=== PATIENT | female | born 1935 | race Caucasian/White ===

== ENCOUNTER 2025-04-07 05:43 | Inpatient (IN) | payer MEDICARE, SELFPAY ==
[2025-04-07] VITALS (13 sets, daily range): BP systolic 128–193; BP diastolic 58–106
[2025-04-07 03:55] LABS: Hematocrit 38.5 % (37.0-47.0); Hemoglobin 13.1 g/dL (12.0-16.0); Mean Corp Hgb Conc. 34.0 g/dL (33.0-37.0); Mean Corpuscular Volume 93.9 fL (81.0-99.0); Nucleated Red Blood Cells % 0 %; Platelet Count 199 10^3/uL (130-400); Red Cell Dist. Width 12.1 % (11.5-14.5)
[2025-04-07 04:19] LABS: ALT (SGPT) 17 U/L (0-35); AST (SGOT) 27 U/L (14-36); Albumin 4.0 g/dl (3.5-5.0); Alkaline Phosphatase 116 U/L (38-126); Blood Urea Nitrogen 27 mg/dl (7-17); Calcium 9.5 mg/dl (8.4-10.2); Carbon Dioxide 28 mmol/L (22-30); Chloride 105 mmol/L (98-107); Glucose 137 mg/dl (70-99); Potassium 3.9 mmol/L (3.5-5.1); Sodium 138 mmol/L (135-145); Total Protein 6.9 g/dl (6.3-8.2); eGFR > 60.00
--- NOTE | 2025-04-07 04:33 | ED.GENMED ---
History of Present Illness
<Miah García MD, Resident - Last Filed: 04/07/25 06:50>
General
Chief Complaint: Fall
Source: patient
Time Seen by Provider: 04/07/25 04:22
History of Present Illness
History of Present Illness:
Patient is an 89-year-old female who presents to the emergency department with an unwitnessed fall, left hip pain, and the inability to stand. She is a long-term resident of [facility] with a past medical history of Alzheimer's dementia,
hyperlipidemia, nephrolithiasis, hypertension, diverticulitis, and history of falls. She takes furosemide, losartan, metoprolol, and sertraline. Patient was in her normal state of health earlier in the day when she experienced an unwitnessed fall
approximately 5 hours prior to her presentation. She was found on the floor and when staff tried to help lift her to her feet she was unable to stand. This prompted staff to call EMS for her to be brought to the emergency department for further
evaluation. Patient is a poor historian and her history has been taken from EMS. patient is resting comfortably in bed but unable to stand. Patient is only oriented to self not place or time.
Review of Systems
<Miah García MD, Resident - Last Filed: 04/07/25 06:50>
Review of Systems
Unable to obtain full review of systems at this time due to: dementia
Phy Exam
<Miah García MD, Resident - Last Filed: 04/07/25 06:50>
Physical Exam
Physical Exam:
Limited physical exam due to patient dementia and acuity
Musculoskeletal Exam
Musculoskeletal Exam: other ( unable to move left lower limb at the hip)
Course
<Miah García MD, Resident - Last Filed: 04/07/25 06:50>
Orders/Labs/Results
Orders:
Orders
04/07/25 03:42
Hip, Left 2-3 Views [CR Hip - LT w/wo Pel 2-3 Vw*] Urgent
Comment:
Reason For Exam: S/P pain
Include a pelvis x-ray?: Yes
04/07/25 03:43
CMP [Comprehensive Metabolic Panel] Urgent
Complete Blood Count/With Diff Urgent
04/07/25 04:48
CT Head W/o Iv Contrast Urgent
Comment:
Reason For Exam: Unwitnessed fall. Poor historian. Dementia.
04/07/25 04:53
Morphine Sulfate 2 mg IV NOW ONE
04/07/25 05:09
Morphine Sulfate 2 mg .ROUTE .STK-MED ONE
04/07/25 05:10
Morphine Sulfate 2 mg IV NOW STA
04/07/25 05:16
Admit/Transfer Patient As Directed
Co-Sign Provider:
Level of Care: Inpatient admission
Assign to:: Medical/Surgical
Physician / Group: Mattie
Diagnosis: Left hip fracture
Reason for Hospitalization: Hip fracture
Expected length of stay greater than two midnights?: Yes
ELOS- Estimated Length of Stay in days: 2
I certify the patient meets the requirements for IP care: Yes
04/07/25 05:17
PRN Pain Medication Management As Directed
May give lesser potent ordered pain med per pt: Yes
preference::
Protocol:: Medication orders for pain may be administered in a
manner that supports deferring to patient preference
when the pt is:
- Requesting an ordered lesser potent pain medication.
Least to most potent pain medications are defined
as: acetaminophen < NSAID < tramadol < opioids
(morphine, oxycodone, hydromorphone).
- Requesting a lesser dose of the same medication IF
ORDERED.
- Requesting a less intrusive route of administration
if both routes are prescribed by the provider (PO <
IV).
04/07/25 05:19
Code Status As Directed
Resuscitation Status: Do not resuscitate
Reached after discussion with pt or family/Healthcare POA: Yes
DNR Bracelet Application ONCE
04/07/25 Breakfast
NPO
Allow oral meds: Yes
Allow clear liquids: Sips of Clears
04/07/25 07:06
Dextrose 5%/Lactringers 500 ml [D5lr] 500 ml IV 60 mls/hr
Magnesium Hydroxide [Milk of Magnesia] 30 ml PO DAILYPRN PRN
Morphine Sulfate 2 mg IV Q4HPRN PRN
Oxycodone [Roxicodone] 5 mg PO Q4HPRN PRN
Tamsulosin [Flomax] 0.4 mg PO DAILYPRN PRN
04/07/25 07:06
ORTHOPEDIC CONSULT Routine
Consulting Provider: Collin Lopez
Was physician already notified: Yes
Activity As Directed
Activity Level: With Assistance
Bladder Scan As Directed
Follow Bladder Retention/Intermittent Cath Algorithm?: Yes
PRN if no void in __ hours: 6
Comment: if not voiding 6 hrs upon arrival to floor, bladder scan & follow algorithm
Intake/ Output As Directed
Frequency: Per unit guidelines
Straight Cath As Directed
Frequency: Per Retention Algorithm
Additional Instructions: straight cath as needed per acute urinary retention algorithm for 24 hrs
Additional Instructions: for bladder scan greater than 400 mL
Vital Signs As Directed
Frequency: Per unit guidelines
Pt Eval And Treat Routine
Activity Level: With Assistance
DX Deep Vein Thrombosis Video Routine
04/07/25 08:00
Acetaminophen [Tylenol] 650 mg PO Q4HWA
Metoprolol Xl [Toprol Xl] 50 mg PO Q12
04/07/25 20:00
Docusate Sodium [Colace] 100 mg PO BID
Sennosides [Senokot] 17.2 mg PO BID
04/07/25 22:00
Alprazolam [Xanax] 0.25 mg PO HS
Atorvastatin [Lipitor] 20 mg PO HS
Donepezil HCl [Aricept] 10 mg PO HS
Melatonin 3 mg PO HS
NIFEdipine EXTENDED RELEASE [Procardia Xl (Extended Release)] 30 mg PO HS
04/08/25 08:00
FOLic ACID [Folvite] 1 mg PO DAILY
Furosemide [Lasix] 40 mg PO DAILY
Losartan [Cozaar] 100 mg PO DAILY
Sertraline HCl [Zoloft] 100 mg PO DAILY
04/08/25 18:00
Enoxaparin Sodium [Lovenox] 40 mg SC QPM
Abnormal Lab Results
04/07/25
03:43
WBC 11.7 H 10^3/uL
(4.8-10.8)
RBC 4.10 L 10^6/uL
(4.20-5.40)
MCH 32.0 H pg
(27.0-31.0)
Abs Immat Gran (auto) 0.1 H 10^3/uL
(0-0.05)
Absolute Neuts (auto) 9.9 H 10^3/uL
(1.4-6.5)
Neutrophils % 84.1 H %
(42.2-75.2)
Lymphocytes % 10.9 L %
(20.5-51.1)
BUN 27 H mg/dl
(7-17)
Glucose 137 H mg/dl
(70-99)
04/07/25 03:43
04/07/25 03:43
Vital Signs
Initial and Last Documented VS:
Initial Vital Signs
Temp
98.2 F
04/07/25 03:33
Last Documented Vital Signs
Temp Pulse Resp BP Pulse Ox
97.5 F 81 20 193/106 97
04/07/25 07:00 04/07/25 07:00 04/07/25 07:00 04/07/25 07:00 04/07/25 07:00
<Carly Ventura, DO - Last Filed: 04/07/25 07:39>
Orders/Labs/Results
Orders:
Orders
04/07/25 03:42
Hip, Left 2-3 Views [CR Hip - LT w/wo Pel 2-3 Vw*] Urgent
Comment:
Reason For Exam: S/P pain
Include a pelvis x-ray?: Yes
04/07/25 03:43
CMP [Comprehensive Metabolic Panel] Urgent
Complete Blood Count/With Diff Urgent
04/07/25 04:48
CT Head W/o Iv Contrast Urgent
Comment:
Reason For Exam: Unwitnessed fall. Poor historian. Dementia.
04/07/25 04:53
Morphine Sulfate 2 mg IV NOW ONE
04/07/25 05:09
Morphine Sulfate 2 mg .ROUTE .STK-MED ONE
04/07/25 05:10
Morphine Sulfate 2 mg IV NOW STA
04/07/25 05:16
Admit/Transfer Patient As Directed
Co-Sign Provider:
Level of Care: Inpatient admission
Assign to:: Medical/Surgical
Physician / Group: Mattie
Diagnosis: Left hip fracture
Reason for Hospitalization: Hip fracture
Expected length of stay greater than two midnights?: Yes
ELOS- Estimated Length of Stay in days: 2
I certify the patient meets the requirements for IP care: Yes
04/07/25 05:17
PRN Pain Medication Management As Directed
May give lesser potent ordered pain med per pt: Yes
preference::
Protocol:: Medication orders for pain may be administered in a
manner that supports deferring to patient preference
when the pt is:
- Requesting an ordered lesser potent pain medication.
Least to most potent pain medications are defined
as: acetaminophen < NSAID < tramadol < opioids
(morphine, oxycodone, hydromorphone).
- Requesting a lesser dose of the same medication IF
ORDERED.
- Requesting a less intrusive route of administration
if both routes are prescribed by the provider (PO <
IV).
04/07/25 05:19
Code Status As Directed
Resuscitation Status: Do not resuscitate
Reached after discussion with pt or family/Healthcare POA: Yes
DNR Bracelet Application ONCE
04/07/25 Breakfast
NPO
Allow oral meds: Yes
Allow clear liquids: Sips of Clears
04/07/25 07:06
Dextrose 5%/Lactringers 500 ml [D5lr] 500 ml IV 60 mls/hr
Magnesium Hydroxide [Milk of Magnesia] 30 ml PO DAILYPRN PRN
Morphine Sulfate 2 mg IV Q4HPRN PRN
Oxycodone [Roxicodone] 5 mg PO Q4HPRN PRN
Tamsulosin [Flomax] 0.4 mg PO DAILYPRN PRN
04/07/25 07:06
ORTHOPEDIC CONSULT Routine
Consulting Provider: Collin Lopez
Was physician already notified: Yes
Activity As Directed
Activity Level: With Assistance
Bladder Scan As Directed
Follow Bladder Retention/Intermittent Cath Algorithm?: Yes
PRN if no void in __ hours: 6
Comment: if not voiding 6 hrs upon arrival to floor, bladder scan & follow algorithm
Intake/ Output As Directed
Frequency: Per unit guidelines
Straight Cath As Directed
Frequency: Per Retention Algorithm
Additional Instructions: straight cath as needed per acute urinary retention algorithm for 24 hrs
Additional Instructions: for bladder scan greater than 400 mL
Vital Signs As Directed
Frequency: Per unit guidelines
Pt Eval And Treat Routine
Activity Level: With Assistance
DX Deep Vein Thrombosis Video Routine
04/07/25 08:00
Acetaminophen [Tylenol] 650 mg PO Q4HWA
Metoprolol Xl [Toprol Xl] 50 mg PO Q12
04/07/25 20:00
Docusate Sodium [Colace] 100 mg PO BID
Sennosides [Senokot] 17.2 mg PO BID
04/07/25 22:00
Alprazolam [Xanax] 0.25 mg PO HS
Atorvastatin [Lipitor] 20 mg PO HS
Donepezil HCl [Aricept] 10 mg PO HS
Melatonin 3 mg PO HS
NIFEdipine EXTENDED RELEASE [Procardia Xl (Extended Release)] 30 mg PO HS
04/08/25 08:00
FOLic ACID [Folvite] 1 mg PO DAILY
Furosemide [Lasix] 40 mg PO DAILY
Losartan [Cozaar] 100 mg PO DAILY
Sertraline HCl [Zoloft] 100 mg PO DAILY
04/08/25 18:00
Enoxaparin Sodium [Lovenox] 40 mg SC QPM
Abnormal Lab Results
04/07/25
03:43
WBC 11.7 H 10^3/uL
(4.8-10.8)
RBC 4.10 L 10^6/uL
(4.20-5.40)
MCH 32.0 H pg
(27.0-31.0)
Abs Immat Gran (auto) 0.1 H 10^3/uL
(0-0.05)
Absolute Neuts (auto) 9.9 H 10^3/uL
(1.4-6.5)
Neutrophils % 84.1 H %
(42.2-75.2)
Lymphocytes % 10.9 L %
(20.5-51.1)
BUN 27 H mg/dl
(7-17)
Glucose 137 H mg/dl
(70-99)
04/07/25 03:43
04/07/25 03:43
Vital Signs
Initial and Last Documented VS:
Initial Vital Signs
Temp
98.2 F
04/07/25 03:33
Last Documented Vital Signs
Temp Pulse Resp BP Pulse Ox
97.5 F 81 20 193/106 97
04/07/25 07:00 04/07/25 07:00 04/07/25 07:00 04/07/25 07:00 04/07/25 07:00
<Miah García MD, Resident - Last Filed: 04/07/25 06:50>
*Pulse Oximetry
SaO2: 92
Patient hypoxic: no
*Critical Care Note
Total Time (30-74mins, 75-104mins- exclusive of procedures): 60
<Carly Ventura DO - Last Filed: 04/07/25 07:39>
*Critical Care Note
Total Time (30-74mins, 75-104mins- exclusive of procedures): Not Applicable
<Miah García MD, Resident - Last Filed: 04/07/25 06:50>
Update Note
Update Note:
Problem List:
Left hip pain
inability to stand
Plan:
left hip x-ray ordered
pain management
CBC and CMP ordered
Differential Diagnoses:
left hip fracture
metabolic encephalopathy
physical deconditioning
Radiology:
preliminary read of left hip x-ray shows fracture of the femoral neck
EKG:
not applicable
Labs:
CBC with leukocytosis with white blood cell value of 11.7, neutrophil predominance 84.1%
CMP unremarkable
Updates:
preliminary read of left hip x-ray shows fracture of the femoral neck. patient unable to stand or ambulate.
will consult orthopedics. Will reach out to hospitalist service for admit.
ED Attending Note
<Miah García MD, Resident - Last Filed: 04/07/25 06:50>
-
Portions of this chart may have been created with voice recognition software.� Occasional wrong word or��sound alike� substitutions may have occurred due to the inherent limitations of voice recognition software.
<Carly Ventura DO - Last Filed: 04/07/25 07:39>
ED Attending Note
Patient seen and examined by attending physician: Yes
I performed a history and physical exam of patient and discussed management with resident, I reviewed resident's note and agree with documented findings and plan of care.: Yes
ED Attending Note:
This is an 89-year-old woman with history of Alzheimer's dementia, remote history of breast cancer. Resides in a local intermediate. Suffered an unwitnessed fall and presents via EMS with complaints of left hip pain. correction staff report
patient unable to stand due to left hip pain.
She takes no anticoagulants.
89-year-old woman appears her stated age, awake and alert, confused.
HEENT: The head is normocephalic, atraumatic.
Neck is supple, nontender. Full cervical range of motion without difficulty nor pain.
Heart is regular rate and rhythm.
Lungs are clear to auscultation.
Abdomen is soft without appreciable tenderness.
Extremities: Left lower extremity is mildly externally rotated and shortened. Mild pain about the left hip with palpation. Moderate left hip pain with attempted range of motion. Peripheral pulses are full and equal.
Significant concern for left hip fracture thus x-ray performed which shows transcervical left hip fracture.
Patient does have a history of dementia however suffered an unwitnessed fall just must consider occult head injury, will check CT of the head.
Will admit to hospital service and consult orthopedics regarding left hip fracture.
Calls have been placed to both son and daughter, no return call as yet.
According to intermediate records, patient is DNR status.
Discharge Plan
Departure
Patient Disposition: Admit
Date of Disposition: 04/07/25
Time of Disposition: 05:08
Admit to: Med/Surg
Admit to doctor: Mattie
Presentation/result/management discussed w/ accepting MD/DO: Hospitalist
Condition: Fair
Discharge Problem:
Acute left hip fracture, Fall at intermediate, Alzheimer's dementia
Interventions
Interventions:
*Risk Screen - Suicide Last Done: 04/07/25 04:00
*General Assessment Last Done: 04/07/25 05:23
*Neglect/Abuse Screening Last Done: 04/07/25 04:00
*Nursing Disposition Last Done: 04/07/25 06:53
ED-Musculoskeletal Assessment Last Done: 04/07/25 03:45
ED- Neurological Assessment Last Done: 04/07/25 04:00
Discharge Date and Time
Discharge Date/Time: 04/07/25 06:53
[2025-04-07] MEDS: MORPHINE SULFATE 2 MG IV ×3 (04:56→07:52)
--- NOTE | 2025-04-07 04:57 | HPS.HSE ---
Family Physician
-
Family Physician: Nico Sanchez
Chief Complaint
-
Unwitnessed fall
History of Present Illness
This is a 89-year-old female with past medical history significant for hypertension, hyperlipidemia, dementia who presents to the emergency department following an unwitnessed fall from a long-term care facility.
Patient with fairly advanced dementia and unable to provide much history. She could not recall the circumstances of her fall. It does not appear that she had a loss of consciousness and she had no external trauma in her head limbs or thorax. She
stated that she ambulates with walker at baseline. She eats independently.
In the emergency department she was afebrile, blood pressure was elevated at 180/99 with a pulse rate of 80. She was satting 90% on room air. CBC was unremarkable with a white count of 11.7 hemoglobin of 13.1 and a plate count of 199.
Electrolytes BUN and creatinine were in the normal range.
Hip x-ray revealed a left-sided femoral neck comminuted fracture fracture
Medical History
Past Medical History
Past Medical History: Reports Cancer (History of breast cancer status posttreatment), Dementia, HTN, Hypercholesterolemia and Other (Nephrolithiasis)
Past Surgical History: Reports Other
Social History
Tobacco: Non-smoker
Alcohol: None
Drug: None
Family History
Family History: Not pertinent
Allergies / Home Medications
Allergies reflects when Allergies were last updated in [facility].
Home Medications with original date entered in [facility]
Allergy/Medication List:
Allergies
Allergy/AdvReac Type Severity Reaction Status Date / Time
amlodipine Allergy Unknown Verified 04/07/25 04:29
codeine Allergy Unknown Verified 04/07/25 04:28
Home Medications
alprazolam 0.25 mg tablet 0.25 mg PO HS anxiety 04/07/25
atorvastatin 20 mg tablet 20 mg PO HS 04/07/25
donepezil 10 mg tablet 10 mg PO HS 04/07/25
folic acid 1 mg tablet 1 mg PO DAILY 04/07/25
furosemide 40 mg tablet 40 mg PO DAILY 04/07/25
losartan 100 mg tablet 100 mg PO DAILY 04/07/25
melatonin 3 mg capsule 3 mg PO HS sleep 04/07/25
metoprolol succinate 50 mg tablet,extended release 24 hr 50 mg PO Q12H 04/07/25
nifedipine 30 mg tablet,extended release 30 mg PO HS 04/07/25
sertraline 100 mg tablet 100 mg PO DAILY 04/07/25
Review of Systems
-
Unable to obtain full review of systems at this time due to: Dementia
Physical Exam
Vital Signs
Vital Signs
Temp BP Pulse Ox
98.2 F 183/99 92
04/07/25 03:33 04/07/25 03:35 04/07/25 04:38
Physical Exam
General: Well Developed, Well Nourished and No Apparent Distress
HEENT: NormoCephalic, Moist mucous membranes and Atraumatic
Respiratory: Clear
Cardiac: S1/S2 and Regular Rhythm; No Murmur or Rub
GI: Soft, Non Tender, Non Distended and Normal Bowel Sounds; No Organomegaly
Rectal: Deferred by Provider
Genito-urinary: Deferred by me
Musculoskeletal: No Clubbing, No Cyanosis, Edema, Left Lower Extremity (1+), Edema, Right Lower Extremity (1+) and Other (Intact pulses bilateral)
Skin: No Rash
Neuro: Alert, Oriented (Oriented to person only) and Nonfocal/grossly intact
Hematologic/Lymphatic: No Lymphadenopathy
Psych: Calm
Laboratory Results
-
04/07/25 03:43
04/07/25 03:43
Laboratory Results
Total Bilirubin 1.3 mg/dl (0.2-1.3) 04/07/25 03:43
AST 27 U/L (14-36) 04/07/25 03:43
ALT 17 U/L (0-35) 04/07/25 03:43
Alkaline Phosphatase 116 U/L (38-126) 04/07/25 03:43
Data Reviewed
-
Diagnostic Radiology: Image Personally Visualized and interpreted
Lab Data: Labs Reviewed by me
Old Records: Reviewed
Impression/Plan
-
IMPRESSION:
89-year-old from chronic care facility who had an unwitnessed fall and suffered a left-sided comminuted femoral neck fracture. Last meal was dinnertime yesterday. She is not on any thinners or antiplatelet agents. Hypertension but otherwise no
known cardiac disease.
PLAN:
Hip fracture
- Admit to MedSurg
- head CT to rule out intracranial process but no obvious head trauma or change in MS
- N.p.o. for now
- Maintenance fluids
- Continue metoprolol this evening, and nifedipine and losartan with hold parameters starting postop #1
- continue lasix pod #1
- fracture order set with pain control, antiemetics and urinary retention protocol
- dvt ppx with scds pending surgery
- ortho consulted and aware
- PT consult
Left message for POA son Quinn Reina.
Code Status -DNR
--- NOTE | 2025-04-07 07:15 | CON.ORTHO ---
Consultation
-
Date/Time Consultation Requested: 04/07/2025 @ Unknown Time
Date/Time Consultation Performed: 04/07/2025 @ 7:10 AM
Requesting Provider: Paramjit Phelps MD
Performing Provider: Misha Sawant PA-C for Dr. Collin Lopez
Reason for Consultation: Left Hip Fracture
Consultation - Orthopedics
History
Orthopedic Surgery Note
CC: Unwitnessed Mechanical Fall
HPI: The patient is an 89-year-old female with a past medical history significant for Hypertension, Hyperlipidemia, Dementia, Breast cancer s/p mastectomy, and Nephrolithiasis who presented to [facility] following an unwitnessed fall from her long-term
care facility ([facility]). The patient has fairly advanced dementia and is unable to provide much information, therefore history obtained through chart review and discussion with patient's POA Ivonne Omar. She was transported to the
Emergency Department via EMS, where x-rays revealed a left femoral neck fracture. At this time, she does not complain of any significant pain at rest. There is increased pain with any attempted range of motion. The patient does not use any
anticoagulants. At baseline, she ambulates mostly with a walker. Her daughter Ivonne informs me that sometimes she ambulates without a walker. She eats independently. Orthopedic surgery was consulted for further management.
PMH/PSH: Hypertension, Hyperlipidemia, Dementia, Breast cancer s/p mastectomy, and Nephrolithiasis
Medications: Reviewed.
Family History: Family history was reviewed. Noncontributory.
Social history: Nonsmoker, no illicit drugs.
Exam
General appearance: Pleasant. No acute distress.
Head: Normocephalic/atraumatic
Nose: No lesions or discharge.
Skin: No obvious rashes or open wounds
Lungs: No audible wheezing, no cough or sputum production
Musculoskeletal:
LLE:
Directed examination of the left lower extremity reveals leg shortened and externally rotated. (+) TTP about the left hip. Compartments are soft and compressible. (+) Logroll. Calf is soft and nontender to palpation. She is able to plantarflex and
dorsiflex left ankle. Calf is soft and nontender to palpation. NVI distally.
Radiographic Findings:
CR Hip - LEFT w/wo Pel 2-3 Vw* was obtained at [facility] on 04/07/2025 and was made available for my review today. Findings: There is an acute appearing left subcapital hip fracture. There is moderate convex lateral angulation. There is
approximate 1.5 cm superior displacement of the femoral shaft. No additional acute fractures are noted. There is mild bilateral acetabular sclerosis and mild diffuse joint space narrowing of both hip joints. There is moderate osteophyte formation
of the lumbar spine. Impression: Acute displaced left hip fracture. Osteoarthritis as described above.
Assessment: 89-year-old female with a LEFT displaced femoral neck fracture.
Plan: Unfortunately, the patient has sustained a left hip fracture. Treatment options were discussed with the patient and her family today at length, and after thorough discussion, shared decision was to proceed with operative management. The
risks, benefits, potential complications and expected post-operative course were reviewed. We will plan for a LEFT hip hemiarthroplasty under the direction of Dr. Lopez later this morning Tuesday04/07/2025, as long as cleared to proceed. Surgical
and blood consents were obtained and placed on the patient's chart. Ancef, iodine irrigation, and TXA irrigation OCTOR. Patient will remain NPO. Remain NWB to LLE until post-op. She is to remain on bedrest for now. Continue with pain
medications as needed. Type and screen requested. Left hip marked as the correct surgical extremity. Hemoglobin today 13.1. Orthopedic surgery will continue to follow along.
Allergies / Home Medications
Allergy/AdvReac Type Severity Reaction Status Date / Time
amlodipine Allergy Unknown Verified 04/07/25 04:29
codeine Allergy Unknown Verified 04/07/25 04:28
�Medication �Instructions �Recorded
alprazolam 0.25 mg tablet 0.25 mg PO HS anxiety 04/07/25
atorvastatin 20 mg tablet 20 mg PO HS 04/07/25
donepezil 10 mg tablet 10 mg PO HS 04/07/25
folic acid 1 mg tablet 1 mg PO DAILY 04/07/25
furosemide 40 mg tablet 40 mg PO DAILY 04/07/25
losartan 100 mg tablet 100 mg PO DAILY 04/07/25
melatonin 3 mg capsule 3 mg PO HS sleep 04/07/25
metoprolol succinate 50 mg 50 mg PO Q12H 04/07/25
tablet,extended release 24 hr
nifedipine 30 mg tablet,extended 30 mg PO HS 04/07/25
release
sertraline 100 mg tablet 100 mg PO DAILY 04/07/25
Vital Signs / Lab Results
Temp Pulse Resp BP Pulse Ox
98.2 F 77 18 162/88 93
04/07/25 03:33 04/07/25 05:00 04/07/25 05:00 04/07/25 05:00 04/07/25 05:15
04/07/25 03:43
04/07/25 03:43
[2025-04-07] MEDS: TYLENOL 650 MG PO (07:49)
[2025-04-07] MEDS: TOPROL XL 50 MG PO ×2 (07:49→20:28)
[2025-04-07] MEDS: D5LR 500 IV (08:01)
--- NOTE | 2025-04-07 09:55 | CM ---
Addendum entered by Nathalia Cline 04/07/25 10:37:
For OR today for Hip repair. Watch for possible rehab needs post OR
Original Note:
Initial assessment completed with pts daughter via phone.
Pt is an 89yr old female admitted from [facility] post fall.
Pt with Alzheimer's who lives in nursing level of care, receiving full assistance with ADLs. Per daughter, pt does use RW and walks all around the unit.
Pt will return to [facility] when medically stable.
--- NOTE | 2025-04-07 11:03 | W.PN.UPDATE ---
Update Note
Progress Note Update
Seen and examined independent of overnight physician
Currently resting in bed. Denies any pain. Per daughter at bedside patient usually ambulates with a walker and usually does not have any difficulty with walking. Daughter at bedside denied patient was complaining of any chest pain or shortness of
breath recently.
General: Flushed
Respiratory: Clear
Cardiac: S1/S2 and Regular Rhythm; No Murmur or Rub
GI: Soft, Non Tender, Non Distended and Normal Bowel Sounds; No Organomegaly
Musculoskeletal: No Clubbing, No Cyanosis, Edema, Left Lower Extremity (1+), Edema, Right Lower Extremity (1+)
Skin: No Rash
Neuro: Alert, Oriented (Oriented to person only) and Nonfocal/grossly intact, apparent dementia
Hematologic/Lymphatic: No Lymphadenopathy
Psych: Calm
IMPRESSION:
89-year-old from chronic care facility who had an unwitnessed fall and suffered a left-sided comminuted femoral neck fracture. Last meal was dinnertime yesterday. She is not on any thinners or antiplatelet agents. Hypertension but otherwise no
known cardiac disease.
PLAN:
left-sided comminuted femoral neck fracture.
- N.p.o. for now
- Maintenance fluids
- Continue with patient home medication regimen for blood pressure control
- continue lasix pod #1
- fracture order set with pain control, antiemetics and urinary retention protocol
- dvt ppx with scds pending surgery
- Plan 4 OR today. Monitor hemoglobin postop.
- EKG with normal sinus rhythm. No significant acute ST or T wave changes noted. Patient without any chest pain. Medically necessary surgery and will proceed. Monitor postop closely.
Primary hypertension
Elevated could be due to pain
Continue patient extensive home regimen of losartan 100 mg, Lasix 40 mg, metoprolol 50 every 12, nifedipine 30 mg nightly
Dementia unknown if it behavioral disturbances
Continue with donepezil
Hyperlipidemia
Continue statin
Mood disorder
Continue with sertraline
Code Status -DNR
Discussed with patient daughter at bedside in detail.
[2025-04-07] MEDS: TYLENOL PO (11:42)
--- NOTE | 2025-04-07 12:41 | W.IMMPOSTOP ---
Surgical Immed Post Op Note
-
Primary Surgeon: Jessica
Teacher Home Therapy: Misha Sawant PA-C
Pre-op Diagnosis: Left hip femoral neck fracture
Post-op Diagnosis: Same
Procedure Performed: Left hip hemiarthroplasty
Anesthesia Type: General
Specimen / Cultures: None
Estimated Blood Loss: 20cc
Complications: None
Operative Findings: Dictated [id number]
Plan:
- WBAT
- OK to resume ASA tomorrow
- PT/ OT
[2025-04-07] MEDS: TYLENOL 1000 MG PO (17:26)
[2025-04-07] MEDS: ANCEF 5 IV (17:26)
[2025-04-07] MEDS: ASPIRIN 325 MG PO (17:26)
[2025-04-07] MEDS: SENOKOT 17.2 MG PO (20:28)
[2025-04-07] MEDS: COLACE 100 MG PO (20:28)
[2025-04-07] MEDS: ARICEPT 10 MG PO (22:08)
[2025-04-07] MEDS: XANAX 0.25 MG PO (22:08)
[2025-04-07] MEDS: LIPITOR 20 MG PO (22:08)
[2025-04-07] MEDS: MELATONIN 3 MG PO (22:08)
[2025-04-07] MEDS: PROCARDIA XL (EXTENDED RELEASE) 30 MG PO (22:09)
[2025-04-08] VITALS (8 sets, daily range): BP systolic 82–145; BP diastolic 50–65; PULSE 72; O2SAT 92
[2025-04-08] MEDS: ANCEF 5 IV (02:11)
[2025-04-08] MEDS: TYLENOL 1000 MG PO ×3 (02:22→17:19)
[2025-04-08 06:28] LABS: Hematocrit 33.2 % (37.0-47.0); Hemoglobin 11.0 g/dL (12.0-16.0); Mean Corp Hgb Conc. 33.1 g/dL (33.0-37.0); Mean Corpuscular Volume 96.2 fL (81.0-99.0); Nucleated Red Blood Cells % 0 %; Platelet Count 184 10^3/uL (130-400); Red Cell Dist. Width 12.4 % (11.5-14.5)
[2025-04-08 06:47] LABS: Blood Urea Nitrogen 25 mg/dl (7-17); Calcium 8.8 mg/dl (8.4-10.2); Carbon Dioxide 26 mmol/L (22-30); Chloride 104 mmol/L (98-107); Glucose 107 mg/dl (70-99); Potassium 4.0 mmol/L (3.5-5.1); Sodium 135 mmol/L (135-145); eGFR > 60.00
[2025-04-08] MEDS: FOLVITE 1 MG PO (08:41)
[2025-04-08] MEDS: COZAAR 100 MG PO (08:41)
[2025-04-08] MEDS: MIRALAX 17 GRAMS PO (08:41)
[2025-04-08] MEDS: LASIX 40 MG PO (08:41)
[2025-04-08] MEDS: TOPROL XL 50 MG PO (08:41)
[2025-04-08] MEDS: COLACE 100 MG PO (08:41)
[2025-04-08] MEDS: SENOKOT 17.2 MG PO (08:42)
[2025-04-08] MEDS: ASPIRIN 325 MG PO (08:42)
[2025-04-08] MEDS: ZOLOFT 100 MG PO (08:42)
--- NOTE | 2025-04-08 09:22 | W.PN.ORTHO ---
Today's Communication / Plan
-
Appreciate primary team, continue treatment
Dispo likely SNF, appreciate CM
WBAT B/L LEs on walker, with PT
Abductor pillow in place while in bed
PT/OT, THPs x 6 weeks
Dressing to remain 7-10 days
Pain control
Troy out at 2 weeks (SNF)
Outpatient Ortho follow-up 4 weeks for clinical check/xrays
Assessment
.
Distal Motor Intact: Yes
Dressing:
Clean, dry and intact. Primaseal in place left hip, mild, contained strikethrough
Assessment:
POD#1 Left hip Rah
Overall doing/feeling well
Calf soft, nontender
Plan
.
Surgery / Date: Left Hip Rah/Apr 18
DVT Prophylaxis: Aspirin
Activity:
Out of bed. WBAT B/L LEs on device, with PT
Abductor pillow in place while in bed
PT/OT, THPs x 6 weeks
Discharge Plan: SNF (appreciate CM)
Subjective
.
.:
Patient resting comfortably. Baseline mentation, quite confused this AM, but not complaining of any pain
Vital Signs and Labs
.
Vital Signs and Labs:
Lab Results
04/08/25 05:33
04/08/25 05:33
Temp Pulse Resp BP Pulse Ox
98.5 F 78 16 145/65 93
04/08/25 07:30 04/08/25 07:30 04/08/25 07:30 04/08/25 07:30 04/08/25 07:30
--- NOTE | 2025-04-08 09:27 | CM ---
Addendum entered by Yolanda Orozco 04/08/25 15:29:
Pt cleared for PT/OT evals. [facility] referral to [facility] updated. Call placed to [facility] regarding pt's return. Ambulance transport requested for return to [place] today.
[place] Report: [phone]
[place]
Original Note:
CM following for discharge planning. Awaiting therapy evaluations which were not able to be completed due to pt's lethargy post-op.
Anticipate return to [facility] when pt is medically stable.
--- NOTE | 2025-04-08 14:52 | W.PN.HOSP.TC ---
Today's Communication/Plan
-
DC to rehab when bed available.
Assessment / Plan
Assessment / Plan
89-year-old from chronic care facility who had an unwitnessed fall and suffered a left-sided comminuted femoral neck fracture. Last meal was dinnertime yesterday. She is not on any thinners or antiplatelet agents. Hypertension but otherwise no
known cardiac disease.
PLAN:
left-sided comminuted femoral neck fracture.
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
No immediate postop complication
Drop in H&H noted suspect probably acute blood loss anemia. Hemodynamically stable. Follow H&H.
Pain seems to be adequately under control.
PT OT recommends rehab-case management to look into rehab placement
On room air currently without any respiratory symptoms.
Orthopedic postop and DC instructions noted
Primary hypertension
Blood pressure under goal
Continue patient extensive home regimen of losartan 100 mg, Lasix 40 mg, metoprolol 50 every 12, nifedipine 30 mg nightly
Dementia unknown if it behavioral disturbances
Continue with donepezil
Patient without any behavioral issues currently.
Hyperlipidemia
Continue statin
Mood disorder
Continue with sertraline
Medically stable for discharge to rehab.
Discussed with son at bedside.
Code Status -DNR
Portions of this chart may have been created with voice recognition software. Occasional wrong word or 'sound alike' substitutions may have occurred due to the inherent limitations of voice recognition software.
Anticipated Discharge: Today
Subjective/Interval History
-
Date of Service: April 08, 2025
Patient feels okay today. Denies any dizziness, shortness of breath, chest pain. No nausea vomiting.
Sitting in a chair comfortably. Alert and oriented to place and person only.
Objective Data
-
Labs:
Laboratory Results
04/08/25
05:33
WBC 9.9
Hgb 11.0 L
Hct 33.2 L
Plt Count 184
Sodium 135
Potassium 4.0
Chloride 104
Carbon Dioxide 26
BUN 25 H
Creatinine 0.8
Glucose 107 H
Calcium 8.8
Vital Signs:
Vital Signs
Temp Pulse Resp BP Pulse Ox
98.7 F 85 18 131/64 95
04/08/25 11:20 04/08/25 11:20 04/08/25 11:20 04/08/25 11:20 04/08/25 11:20
I&O
04/07/25 04/08/25 04/09/25
06:59 06:59 06:59
Intake Total 675 / 675 600 / 600
Output Total 250 / 500 250 / 250
Balance 425 / 175 350 / 350
Review of Systems
-
Unable to obtain full review of systems at this time due to: Dementia
Physical Exam
-
Respiratory: Clear to Auscultation and Non Labored Respirations; Negative Accessory Resp Muscle Use
Cardiac: Regular Rhythm and S1/S2; Negative Tachycardic
GI: Soft
Neuro: AO x 3
Psych: Calm and Confused; Negative Agitated
Data Reviewed
-
Labs: Labs Reviewed by me
--- NOTE | 2025-04-09 15:56 | W.DCSUMMARY ---
Discharge Summary
Discharge Data
Date of Admission: 04/07/25
Date of Discharge: 04/08/25
-
Pending Results: No
Hospital Course
Primary diagnosis:
Left comminuted femoral neck fracture.
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
Secondary diagnosis:
Primary hypertension
Dementia
Hyperlipidemia
Mood disorder
Hospital course:
89-year-old female with a history of dementia presented to emergency department following an unwitnessed fall from long-term care facility and discovered to have above-mentioned fracture and had uneventful surgery. Dementia she was unable to
provide much history. Her dementia is advanced. No major behavioral disturbances noted here.
She was seen by physical therapy who recommended rehab and she was discharged to rehab.
Her blood pressure was under goal and no changes were made to medication regimen.
Consultants on board:
Orthopedics-Collin Adkins
Discharge Plan
-
Patient Disposition: Custodial/SNF
Discharge Diagnosis/Procedures: left-sided comminuted femoral neck fracture.
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
Diet: Low Sodium
Activity: As tolerated
Driving Restrictions: No driving
Bathing Restrictions: None
Other Services: PT and OT
Activity Restrictions/Additional Instructions:
WBAT B/L LEs on walker, with PT
Dressing to remain 7-10 days
Troy out at 2 weeks (SNF)
Outpatient Ortho follow-up 4 weeks for clinical check/xrays
Referrals:
Collin Lopez MD [Active, Orthopedics] - in two weeks
Referral Note: In 2 weeks for staple removal but if the troy can be removed at the rehab follow-up in 4 weeks
Nico Sanchez MD [Family Provider, Internal Medicine]
Prescriptions:
New
aspirin 325 mg Tablet
325 mg PO DAILY Qty: 1 0RF
Rx Instructions:
4 weeks for DVT prophylaxis
polyethylene glycol 3350 17 gram Powder In Packet
17 g PO DAILY Qty: 1 0RF
docusate sodium 100 mg Capsule
100 mg PO BID Qty: 1 0RF
oxycodone 5 mg Tablet
5 mg PO Q4HPRN PRN (Reason: moderate pain) Qty: 12 0RF
acetaminophen [Tylenol Extra Strength] 500 mg Tablet
1,000 mg PO Q8H Qty: 1 0RF
Continued
furosemide 40 mg Tablet
40 mg PO DAILY
atorvastatin 20 mg Tablet
20 mg PO HS
metoprolol succinate 50 mg Tablet Extended Release 24 Hr
50 mg PO Q12H
donepezil 10 mg Tablet
10 mg PO HS
sertraline 100 mg Tablet
100 mg PO DAILY
nifedipine 30 mg Tablet Extended Release
30 mg PO HS
folic acid 1 mg Tablet
1 mg PO DAILY
losartan 100 mg Tablet
100 mg PO DAILY
melatonin 3 mg Capsule
3 mg PO HS
alprazolam 0.25 mg Tablet
0.25 mg PO HS Qty: 3 0RF
Discharge Orders:
Discharge Patient (As Directed); Ordered 04/08/25
Ordered By: Mehul Negron
Discharge Date and Time
Discharge Date/Time: 04/08/25 19:11
Print Language: THAI
== END 2025-04-08 19:11 | DRG 522 ==
LOC: 2 SOUTH 05:43
PROVIDERS: Hospitalist; Student in an Organized Health Care Education/Training Program; ADMITTING PHYSICIAN Internal Medicine; ATTENDING PHYSICIAN Internal Medicine; CONSULT PHYSICIAN Orthopaedic Surgery; EMERGENCY PHYSICIAN Emergency Medicine; FAMILY PHYSICIAN Internal Medicine
PROC: 0SRS0J9 Replacement of Left Hip Joint, Femoral Surface with Synthetic Substitute, Cemented, Open Approach (ICD-10-PCS; 2025-04-07)
DX: S72.002A Fracture of unspecified part of neck of left femur, initial encounter for closed fracture (principal); F02.83 Dementia in other diseases classified elsewhere, unspecified severity, with mood disturbance; I10 Essential (primary) hypertension; W19.XXXA Unspecified fall, initial encounter; E78.00 Pure hypercholesterolemia, unspecified; Z87.442 Personal history of urinary calculi; Z85.3 Personal history of malignant neoplasm of breast; Z88.5 Allergy status to narcotic agent; Z66 Do not resuscitate; Z79.899 Other long term (current) drug therapy
CPT/HCPCS: 70450; 73502; 80048; 80053; 85025; 86850; 86900; 86901; 87070; 93005; 96374; 96376; 97163; 97167; 99291